=== PATIENT | female | born 1960 | race Asian ===

== ENCOUNTER 2020-12-05 15:14 | Inpatient (IN) | payer BC, SELFPAY ==
[~2020-12-05] VITALS: Ht 157.5 cm; Wt 60.3 kg
[~2020-12-05 15:14] MED LIST: BYSTOLIC5 M1; COZAAR50 M1; CRESTOR5 M1; HUMIRA40 MG/0.4 SC; MET2.5 PO; NORCO1 TA2 PO; TAMSULOSIN HCL0.4 MG PO
[2020-12-05 15:18] VITALS: Ht 157.5 cm; Wt 60.3 kg
[2020-12-05 16:11] LABS: BASOPHIL % 0.6 % (0.2-1.3); PLATELET COUNT 230 x10^3mcL (179-408); RED CELL DISTRIBUTION WIDTH 12.6 % (12.3-17.7)
[2020-12-05 16:23] LABS: CALCIUM 8.9 mg/dL (8.5-10.1); CARBON DIOXIDE 23.8 mmol/L (21-32); CHLORIDE SERUM 101 mmol/L (98-107); CREATININE SERUM 0.8 mg/dL (0.6-1.0); GFR1 > 60 mL/min; GLUCOSE SERUM 122 mg/dL (74-106); POTASSIUM SERUM 3.5 mmol/L (3.5-5.1); SODIUM SERUM 137 mmol/L (136-145)
[2020-12-05 16:27] LABS: ALBUMIN 3.8 g/dL (3.4-5.0); ALKALINE PHOSPHATASE 110 U/L (46-116); ALT/SGPT 173 U/L (14-59); AST/SGOT 150 U/L (15-37); BILIRUBIN TOTAL 0.3 mg/dL (0.20-1.00); TOTAL PROTEIN, SERUM 7.7 g/dL (6.4-8.2)
[2020-12-05 17:24] LABS: microscopic required? YES; urine erythrocyte 3+ (NEGATIVE)
[2020-12-05 18:04] LABS: MAGNESIUM 2.1 mg/dL (1.8-2.4); PHOSPHOROUS 2.5 mg/dL (2.5-4.9)
[2020-12-05 23:31] VITALS: BP 130/64
[2020-12-06] VITALS (7 sets, daily range): BP systolic 95–116; BP diastolic 54–69
[2020-12-06 07:56] LABS: BASOPHIL % 0.4 % (0.2-1.3); PLATELET COUNT 180 x10^3mcL (179-408); RED CELL DISTRIBUTION WIDTH 12.8 % (12.3-17.7)
[2020-12-06 08:32] LABS: ALKALINE PHOSPHATASE 84 U/L (46-116); ALT/SGPT 119 U/L (14-59); AST/SGOT 57 U/L (15-37); BILIRUBIN TOTAL 0.3 mg/dL (0.20-1.00); CALCIUM 8.5 mg/dL (8.5-10.1); CHLORIDE SERUM 107 mmol/L (98-107); CREATININE SERUM 0.7 mg/dL (0.6-1.0); GFR1 > 60 mL/min; GLUCOSE SERUM 104 mg/dL (74-106); POTASSIUM SERUM 3.7 mmol/L (3.5-5.1); SODIUM SERUM 140 mmol/L (136-145); TOTAL PROTEIN, SERUM 6.5 g/dL (6.4-8.2)
[2020-12-07 07:30] VITALS: BP 101/64
[2020-12-07 08:10] LABS: CALCIUM 8.4 mg/dL (8.5-10.1); CARBON DIOXIDE 24.8 mmol/L (21-32); CHLORIDE SERUM 110 mmol/L (98-107); CREATININE SERUM 0.6 mg/dL (0.6-1.0); GFR1 > 60 mL/min; GLUCOSE SERUM 85 mg/dL (74-106); MAGNESIUM 2.1 mg/dL (1.8-2.4); PHOSPHOROUS 3.2 mg/dL (2.5-4.9); POTASSIUM SERUM 3.5 mmol/L (3.5-5.1); SODIUM SERUM 143 mmol/L (136-145)
[2020-12-07 11:25] LABS: PLATELET COUNT 186 x10^3mcL (179-408); RED CELL DISTRIBUTION WIDTH 13.4 % (12.3-17.7)
[2020-12-07 11:58] VITALS: BP 114/71
[2020-12-07 13:40] LABS: MONOCYTE 15 % (0-7); PLATELET MORPHOLOGY PLATELETS NORMAL; SEGMENTED NEUTROPHILS 40 % (37-75); rbc morphology (normal/abnorm) NORMAL (NORMAL)
[2020-12-07 16:59] VITALS: BP 123/74
[2020-12-07 20:46] VITALS: BP 137/85
[2020-12-08 06:22] VITALS: BP 114/59
[2020-12-08 07:41] LABS: BASOPHIL % 0.8 % (0.2-1.3); PLATELET COUNT 216 x10^3mcL (179-408)
[2020-12-08 07:54] LABS: CALCIUM 8.9 mg/dL (8.5-10.1); CARBON DIOXIDE 24.1 mmol/L (21-32); CHLORIDE SERUM 108 mmol/L (98-107); CREATININE SERUM 0.6 mg/dL (0.6-1.0); GFR1 > 60 mL/min; GLUCOSE SERUM 83 mg/dL (74-106); MAGNESIUM 2.1 mg/dL (1.8-2.4); PHOSPHOROUS 3.7 mg/dL (2.5-4.9); POTASSIUM SERUM 3.4 mmol/L (3.5-5.1); SODIUM SERUM 143 mmol/L (136-145)
[2020-12-08 09:30] VITALS: BP 124/76
[2020-12-08 19:29] VITALS: BP 115/70
[2020-12-09 06:42] VITALS: BP 114/66
[2020-12-09 09:48] VITALS: BP 116/65
[2020-12-09 10:32] LABS: BASOPHIL % 0.3 % (0.2-1.3); PLATELET COUNT 245 x10^3mcL (179-408); RED CELL DISTRIBUTION WIDTH 12.9 % (12.3-17.7)
[2020-12-09 11:21] LABS: CALCIUM 9.4 mg/dL (8.5-10.1); CARBON DIOXIDE 26.6 mmol/L (21-32); CHLORIDE SERUM 106 mmol/L (98-107); CREATININE SERUM 0.6 mg/dL (0.6-1.0); GFR1 > 60 mL/min; GLUCOSE SERUM 113 mg/dL (74-106); MAGNESIUM 2.3 mg/dL (1.8-2.4); PHOSPHOROUS 3.5 mg/dL (2.5-4.9); POTASSIUM SERUM 3.6 mmol/L (3.5-5.1); SODIUM SERUM 143 mmol/L (136-145)
[2020-12-09 13:18] VITALS: BP 110/68
[2020-12-09 17:12] VITALS: BP 100/57
[2020-12-09 21:45] VITALS: BP 112/71
[2020-12-10 06:40] VITALS: BP 106/64
[2020-12-10 07:58] LABS: BASOPHIL % 0.4 % (0.2-1.3); PLATELET COUNT 269 x10^3mcL (179-408); RED CELL DISTRIBUTION WIDTH 12.8 % (12.3-17.7)
[2020-12-10 08:00] VITALS: BP 123/72
[2020-12-10 08:09] LABS: CALCIUM 9.1 mg/dL (8.5-10.1); CARBON DIOXIDE 24.2 mmol/L (21-32); CHLORIDE SERUM 108 mmol/L (98-107); CREATININE SERUM 0.6 mg/dL (0.6-1.0); GFR1 > 60 mL/min; GLUCOSE SERUM 88 mg/dL (74-106); MAGNESIUM 2.3 mg/dL (1.8-2.4); PHOSPHOROUS 3.5 mg/dL (2.5-4.9); POTASSIUM SERUM 3.6 mmol/L (3.5-5.1); SODIUM SERUM 142 mmol/L (136-145)
[2020-12-10] MEDS ORDERED: AUGMENTIN 875-1 EACH PO (10:17)
[2020-12-10 10:47] VITALS: BP 123/72
== END 2020-12-10 11:54 | disposition home or self-care (01) | DRG 854 ==
LOC: ED 15:14 → DU 17:21 → MU 17:21 → DU 23:24 → MU 12-08 10:06
PROVIDERS: Family Medicine; Student in an Organized Health Care Education/Training Program; Urology; ADMIT Internal Medicine; ATTEND Internal Medicine
PROC: 0T778DZ Dilation of Left Ureter with Intraluminal Device, Via Natural or Artificial Opening Endoscopic (ICD-10-PCS; 2020-12-09)
PROC: BT1F1ZZ Fluoroscopy of Left Kidney, Ureter and Bladder using Low Osmolar Contrast (ICD-10-PCS; 2020-12-09)
PROC: 0TP98DZ Removal of Intraluminal Device from Ureter, Via Natural or Artificial Opening Endoscopic (ICD-10-PCS; 2020-12-09)
PROC: 0TC78ZZ Extirpation of Matter from Left Ureter, Via Natural or Artificial Opening Endoscopic (ICD-10-PCS; principal; 2020-12-09 07:30)
DX: A41.9 Sepsis, unspecified organism (principal); N13.6 Pyonephrosis; E87.1 Hypo-osmolality and hyponatremia; Z20.822 Contact with and (suspected) exposure to COVID-19; I10 Essential (primary) hypertension; E78.5 Hyperlipidemia, unspecified; M06.9 Rheumatoid arthritis, unspecified; R73.9 Hyperglycemia, unspecified; E83.51 Hypocalcemia
CPT/HCPCS: C1769; C2625; G0378; J0692; J0696; J1956; J2250; J3010; J7030; Q9958; Q9967